=== PATIENT | male | born 1965 | race Caucasian/White ===

== ENCOUNTER → 2016-06-23 | Outpatient (CLI) | payer MEDICARE, OTHER ==
[~2016-06-23] MED LIST: ACID CONTROL150 MG PO; ATROVENT HFA12.9 GM INH; ELIQUIS2.5 MG PO; FLOMAX 0.4 MG0.4 MG PO; GLUCOPHAGE 500500 MG PO; HYDROCODON-ACE1 EAC4 PO; LISINOPRIL10 MG PO; LISINOPRIL40 MG PO; LOPRESSOR 50 MG50 MG PO; NEURONTIN 300300 MG PO; NORCO 7.5-3251 EACH PO; NORVASC 5 MG TAB5 MG PO; OMEPRAZOLE40 MG PO; PROAIR HFA8.5 GM INH; SIMVASTATIN40 MG PO; SINGULAIR10 MG PO; THERAGRAN TAB1 EA PO; TIZANIDINE HCL4 MG PO; ZOFRAN4 MG PO
== END ==
LOC: EMI 06-19 18:15
DX: M54.5 Low back pain (principal); M54.16 Radiculopathy, lumbar region; M51.37 Other intervertebral disc degeneration, lumbosacral region
CPT/HCPCS: 72148

== ENCOUNTER → 2016-07-07 | Outpatient (CLI) | payer MEDICARE, OTHER ==
[2016-07-07 09:58] LABS: HEMOGLOBIN 15.7 gm/dl (14.0-17.5); RED BLOOD COUNT 4.79 M/UL (4.20-5.50); WHITE BLOOD COUNT 12.2 K/UL (4.5-11.0)
[2016-07-07 10:11] LABS: BUN/CREATININE RATIO 6 (0-10)
== END ==
LOC: OPSV2 09:22
PROVIDERS: Orthopaedic Surgery
DX: Z01.810 Encounter for preprocedural cardiovascular examination (principal); Z01.812 Encounter for preprocedural laboratory examination; Z01.818 Encounter for other preprocedural examination; M87.9 Osteonecrosis, unspecified; Z88.5 Allergy status to narcotic agent; M19.90 Unspecified osteoarthritis, unspecified site; I10 Essential (primary) hypertension
CPT/HCPCS: 36415; 71020; 80048; 81001; 83036; 85025; 87081; 93005

== ENCOUNTER 2016-07-20 05:38 | Inpatient (IN) | payer MEDICARE, OTHER ==
[~2016-07-20] VITALS: Ht 172.7 cm; Wt 88.5 kg
[~2016-07-20 05:38] MED LIST changes: -ELIQUIS2.5 MG PO; -NORCO 7.5-3251 EACH PO
[2016-07-21 05:58] LABS: HEMOGLOBIN 12.6 gm/dl (14.0-17.5); RED BLOOD COUNT 3.96 M/UL (4.20-5.50); WHITE BLOOD COUNT 10.6 K/UL (4.5-11.0)
[2016-07-21 06:10] LABS: BUN/CREATININE RATIO 7 (0-10)
[2016-07-22 05:24] LABS: RED BLOOD COUNT 4.01 M/UL (4.20-5.50); WHITE BLOOD COUNT 12.2 K/UL (4.5-11.0)
[2016-07-22 05:52] LABS: BUN/CREATININE RATIO 7 (0-10)
[2016-07-22] MEDS ORDERED: ELIQUIS2.5 MG PO (11:45)
[2016-07-22] MEDS ORDERED: NORCO 7.5-3251 EACH PO (11:45)
== END 2016-07-22 16:32 | disposition home health service (06) | DRG 470 ==
LOC: ZOBSOF 05:38 → M/S 15:22
PROVIDERS: ADMIT Orthopaedic Surgery
PROC: 0SRB04A Replacement of Left Hip Joint with Ceramic on Polyethylene Synthetic Substitute, Uncemented, Open Approach (ICD-10-PCS; principal; 2016-07-20 07:45)
DX: M87.9 Osteonecrosis, unspecified (principal); M25.552 Pain in left hip; Z72.89 Other problems related to lifestyle; I10 Essential (primary) hypertension; E11.9 Type 2 diabetes mellitus without complications; M19.90 Unspecified osteoarthritis, unspecified site; F17.210 Nicotine dependence, cigarettes, uncomplicated; K21.9 Gastro-esophageal reflux disease without esophagitis; E78.5 Hyperlipidemia, unspecified; J44.9 Chronic obstructive pulmonary disease, unspecified; J45.909 Unspecified asthma, uncomplicated; Z80.9 Family history of malignant neoplasm, unspecified; Z82.49 Family history of ischemic heart disease and other diseases of the circulatory system; Z88.5 Allergy status to narcotic agent; Z79.891 Long term (current) use of opiate analgesic; Z79.84 Long term (current) use of oral hypoglycemic drugs; Z79.899 Other long term (current) drug therapy; R21 Rash and other nonspecific skin eruption
CPT/HCPCS: 36415; 72170; 76000; 80048; 80051; 82565; 82962; 84520; 85025; 86850; 86900; 86901; 97110; 97116; 97535; C1776; J0171; J0690; J0735; J1885; J2250; J2270; J2274; J2405; J2550; J2710; J2765; J2795; J3010; J3370; J7030; J7050; J7120

== ENCOUNTER 2020-07-30 20:26 | Inpatient (IN) | payer MEDICARE, OTHER ==
[~2020-07-30] VITALS: Ht 172.7 cm; Wt 86.2 kg
[~2020-07-30 20:26] MED LIST changes: +24HR ALLERGY REL5 MG PO; +AZELASTINE137 MCG/0.; +BETAMETHASONE D50 G1 TD; +BRYHALI100 GM TD; +COMPLEX B-1001 EACH PO; +ELIQUIS2.5 MG PO; +ESCITALOPRAM OX10 MG PO; +FLONASE 0.05% N16 GM; +FLOVENT 110.088 GM/I INH; +HYDROCODON-ACE1 EAC2 PO; +LOPRESSOR50 MG PO; +MONTELUKAST SOD10 MG PO; +NORCO 7.5-3251 EACH PO; +RABEPRAZOLE SOD20 MG PO; +THIAMINE HCL100 MG PO; +VITAMIN B-121000 MCG PO; +VITAMIN D PO; +ZANAFLEX 4 MG TA4 MG PO; +ZANTAC 150 MG150 MG PO; +ZINC SULFATE220 M1 PO; +ZOCOR 40 MG TAB40 MG PO; +ZOFRAN ODT 4 MG4 MG PO
[2020-07-30 20:46] LABS: HEMOGLOBIN 17.7 gm/dl (14.0-17.5); RED BLOOD COUNT 5.28 M/UL (4.20-5.50); WHITE BLOOD COUNT 15.4 K/UL (4.5-11.0)
[2020-07-30 21:12] LABS: BUN/CREATININE RATIO 7 (0-10)
[2020-07-31] MEDS ORDERED: LOPRESSOR 50 MG50 MG PO (00:51)
[2020-07-31 06:22] LABS: HEMOGLOBIN 16.2 gm/dl (14.0-17.5); RED BLOOD COUNT 4.88 M/UL (4.20-5.50); WHITE BLOOD COUNT 18.1 K/UL (4.5-11.0)
[2020-07-31 06:44] LABS: BUN/CREATININE RATIO 8 (0-10)
[2020-08-01 03:22] LABS: HEMOGLOBIN 14.3 gm/dl (14.0-17.5); RED BLOOD COUNT 4.4 M/UL (4.20-5.50)
[2020-08-01 03:28] LABS: WHITE BLOOD COUNT 12.9 K/UL (4.5-11.0)
[2020-08-01 03:48] LABS: BUN/CREATININE RATIO 7 (0-10)
[2020-08-01 15:21] LABS: BUN/CREATININE RATIO 6 (0-10)
[2020-08-01] MEDS ORDERED: PROTONIX 40 MG40 M1 PO (16:02)
[2020-08-01] MEDS ORDERED: LOPRESSOR 25 MG25 MG PO (16:02)
[2020-08-01] MEDS ORDERED: THERAGRAN M TAB1 EA PO (16:02)
== END 2020-08-01 18:36 | disposition home or self-care (01) | DRG 439 ==
LOC: ER1 20:26 → CDU 22:30 → M/S 22:30
PROVIDERS: Family Medicine; Internal Medicine Infectious Disease; ADMIT Internal Medicine
DX: K85.20 Alcohol induced acute pancreatitis without necrosis or infection (principal); E87.1 Hypo-osmolality and hyponatremia; F10.10 Alcohol abuse, uncomplicated; Z20.822 Contact with and (suspected) exposure to COVID-19; I10 Essential (primary) hypertension; E11.9 Type 2 diabetes mellitus without complications; J44.9 Chronic obstructive pulmonary disease, unspecified; Z96.649 Presence of unspecified artificial hip joint; Z96.659 Presence of unspecified artificial knee joint; Z88.6 Allergy status to analgesic agent; Z91.19 Patient's noncompliance with other medical treatment and regimen; Z88.2 Allergy status to sulfonamides
CPT/HCPCS: 36415; 71045; 80053; 82550; 82553; 82962; 83036; 83690; 83735; 83874; 83880; 84478; 84484; 85025; 85610; 93005; 96374; 96375; 99285; G0378; J1644; J2270; J2405; J3411; J3475; J3480; J7030; Q9967; U0002